=== PATIENT | female | born 1970 | race Caucasian/White ===

== ENCOUNTER → 2016-05-06 | Outpatient (CLI) | payer OTHER ==
[~2016-05-06] MED LIST: NAPR-243 PO
--- OUTSIDE RECORDS SUMMARY | 2016-05-06 11:41 | XMS REPORT | Continuity of Care Document ---
Author Author [facility] Address Unknown Phone Unavailable Allergies Active Description Code Type Severity Reaction Onset Reported/Identified Relationship to Patient Clinical Status Yes calcium [id number] Drug Allergy Unknown N/A 09/23/2007 Yes [place] And Derivatives [id number] Drug Allergy Unknown N/A 09/23/2007 Yes sodium bicarbonate [id number] Drug Allergy Unknown N/A 09/23/2007 Medications Problems Date Dx Coded Attending Type Code Diagnosis Diagnosed By 12/21/2012 JEAN PAUL ATKINSON DO 682.9 CELLULITIS AND ABSCESS OF UNSPECIFIED SITES 12/21/2012 SALOME DELATORRE APRN 682.9 CELLULITIS AND ABSCESS OF UNSPECIFIED SITES 12/21/2012 SALOME DELATORRE APRN 682.9 CELLULITIS AND ABSCESS OF UNSPECIFIED SITES 03/23/2014 QUICK SHAY W [employer] INTER[employer] Ot 793.80 04/03/2014 QUICK, SHAY W [employer] MARK[employer]ING INTERN Ot V76.12 04/05/2014 QUICK, SHAY W [employer] MARK[employer]ING INTERN Ot 793.80 04/15/2014 QUICK, SHAY W [employer] MARKETING INTERN Ot V76.12 04/15/2014 QUICK, SHAY W [employer] MARK[employer]ING INTERN Ot 793.80 04/19/2014 QUICK, SHAY W [employer]ING INTERN Ot V76.12 04/19/2014 QUICK, SHAY W [employer] MARKETING INTERN Ot 793.80 10/11/2014 QUICK, SHAY W [employer] INTERN Ot 793.80 05/03/2015 QUICK SHAY Ricardo [employer] MARKETING INTERN Ot Z12.31 Procedures Code [place] [address] BIOPSY SKIN LESION (SINGLE) 02/28/2013 Results Encounters ACCT No. Visit Date/Time Discharge Status Pt. Type Provider Facility Loc./Unit Complaint [id number] 02/28/2013 12:23:00 02/28/2013 23: 59:59 [facility] Outpatient SALOME DELATORRE APRN [id number] 02/21/2013 16:41:00 02/21/2013 23: 59:59 [facility] Outpatient SALOME DELATORRE APRN [id number] 12/21/2012 11:46:00 12/21/2012 23: 59:[address] [facility] Outpatient JEAN PAUL ATKINSON DO
--- NOTE | 2016-05-08 19:22 | Diagnostic Imaging Report ---
Bilateral screening mammogram. The current study was also evaluated with a Computer Aided Detection (CAD) system. INDICATION: Screening. No current complaints stated on the questionnaire. COMPARISON: 03/30/15. FINDINGS: The breasts are composed of heterogeneously dense parenchyma which may decrease mammographic sensitivity. Benign-appearing calcifications are seen. Allowing for technique and positional differences, no suspicious change is seen. IMPRESSION: Dense breasts with no definite change. ACR BI-RADS Category 2: Benign findings. Result letter will be mailed to the patient. Note: At least 10% of breast cancer is not imaged by mammography. Dictated by: Dictated on workstation # [id number]
== END ==
LOC: RAD 11:38
PROVIDERS: ATTEND Nurse Practitioner
DX: Z12.31 Encounter for screening mammogram for malignant neoplasm of breast (principal)
CPT/HCPCS: 77067

== ENCOUNTER → 2017-06-05 | Outpatient (CLI) | payer OTHER ==
--- NOTE | 2017-06-05 13:55 | Diagnostic Imaging Report ---
Indication: Routine screening. Comparison: Made with prior study from 05/06/2016 and 03/30/2015. Findings: Both breasts are heterogeneously dense, limiting the sensitivity of mammography. No dominant mass or malignant-appearing microcalcifications are seen. A axillae are unremarkable. Impression: BI-RADS category 1 No mammographic features suspicious for malignancy are identified. ACR BI-RADS Category 1: Negative. Result letter will be mailed to the patient. Note: At least 10% of breast cancer is not imaged by mammography. Dictated by: Dictated on workstation # [id number]
== END ==
LOC: RAD 11:22
PROVIDERS: ATTEND Nurse Practitioner
DX: Z12.31 Encounter for screening mammogram for malignant neoplasm of breast (principal)
CPT/HCPCS: 77067

== ENCOUNTER → 2018-07-09 | Outpatient (CLI) | payer OTHER ==
--- NOTE | 2018-07-09 15:56 | Diagnostic Imaging Report ---
INDICATION: Routine screening. COMPARISON: Prior mammograms from 06/05/2017 and 05/06/2016. EXAMINATION: 2D and 3D bilateral screening mammography was performed with CAD. The current study was also evaluated with a Computer Aided Detection (CAD) system. FINDINGS: Both breasts are heterogeneously dense, limiting the sensitivity of mammography. The parenchymal pattern is stable. No mass or malignant appearing microcalcifications are seen. The axillae are unremarkable. IMPRESSION: No mammographic features suspicious for malignancy are identified. ACR BI-RADS Category 1: Negative. Result letter will be mailed to the patient. Note: At least 10% of breast cancer is not imaged by mammography. Dictated by: Dictated on workstation # [id number]
== END ==
LOC: RAD 11:25
PROVIDERS: ATTEND Nurse Practitioner
DX: Z12.31 Encounter for screening mammogram for malignant neoplasm of breast (principal)
CPT/HCPCS: 77067

== ENCOUNTER → 2020-07-30 | Outpatient (CLI) | payer OTHER | LOC: LAB 11:40 | DX: Z53.9 Procedure and treatment not carried out, unspecified reason (principal) ==

== ENCOUNTER → 2020-08-02 | Outpatient (CLI) | payer OTHER ==
--- NOTE | 2020-08-02 16:36 | Diagnostic Imaging Report ---
INDICATION: Screening. EXAMINATION: Bilateral digital screening mammogram with CAD. 3D tomographic images were obtained and reviewed. The current study was also evaluated with a Computer Aided Detection (CAD) system. COMPARISON: This study was compared to the prior exams of 07/09/2018, 06/05/2017 and 04/26/2016. The current study was also evaluated with a Computer Aided Detection (CAD) system. FINDINGS: The fibroglandular tissue in both breasts is heterogeneously dense. This does limit the sensitivity of this exam. Overall, there does not appear to have been any significant change when compared to the prior study. No primary or secondary sign of malignancy is noted. IMPRESSION: There is no radiographic evidence for malignancy. ACR BI-RADS Category 1: Negative. Result letter will be mailed to the patient. Note: At least 10% of breast cancer is not imaged by mammography. Dictated by: Dictated on workstation # [id number]
== END ==
LOC: RAD 11:30
PROVIDERS: ATTEND Nurse Practitioner Family
DX: Z12.31 Encounter for screening mammogram for malignant neoplasm of breast (principal); Z00.01 Encounter for general adult medical examination with abnormal findings; Z76.0 Encounter for issue of repeat prescription; N39.41 Urge incontinence; M17.12 Unilateral primary osteoarthritis, left knee; B35.3 Tinea pedis; B35.1 Tinea unguium
CPT/HCPCS: 77063; 77067

== ENCOUNTER 2021-07-04 08:55 | Emergency (ER) | payer OTHER ==
[~2021-07-04] VITALS: Ht 149.8 cm; Wt 44.5 kg
--- NOTE | 2021-07-04 09:04 | ED Fall/Injury ---
General Stated Complaint: FALL Source: patient, EMS Exam Limitations: no limitations History of Present Illness Date Seen by Provider: July 04, 2021 Time Seen by Provider: 08:56 Initial Comments 50-year-old female with no significant past medical history coming in via EMS from her work after syncopal episode. 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 She is unsure how long she was down. 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 Vitals were normal for them, and her blood glucose was 106. She denied any chest pain, shortness of breath, abdominal pain, nausea, vomiting, diarrhea, fever, chills, weakness, numbness, changes, hearing changes, or any other concerns. She does not take any blood thinners. This is never happened before. Denies any cardiac history. She does take iron for anemia. Has been eating and drinking normally recently. Is postmenopausal. Allergies and Home Medications Allergies Coded Allergies: Calcium (Verified Allergy, Unknown, 09/23/07) [place] And Derivatives (Verified Allergy, Unknown, 09/23/07) Sodium Bicarbonate (Verified Allergy, Unknown, 09/23/07) Patient Home Medication List Home Medication List Reviewed: Yes Naproxen (Naprosyn) 500 Mg Tablet, 1 EACH PO TID PRN Prescribed by: RUBÉN PETERS on 03/30/09 1562 Review of Systems Review of Systems Constitutional: No chills, No fever Eyes: Denies Blurred Vision Ears, Nose, Mouth, Throat: no symptoms reported Respiratory: no symptoms reported Cardiovascular: No chest pain; syncope Gastrointestinal: no symptoms reported Genitourinary: no symptoms reported Musculoskeletal: no symptoms reported Skin: no symptoms reported Psychiatric/Neurological: No Symptoms Reported All Other Systems Reviewed Negative Unless Noted: Yes Past Myadhaw-Qzqfuw-Fqpsaa Hx Past Medical History Reproductive Disorders: No Physical Exam Vital Signs Capillary Refill : Height, Weight, BMI Height: '" Weight: lbs. oz. kg; BMI Method: General Appearance: WD/WN, no apparent distress HEENT: PERRL/EOMI, normal ENT inspection, TMs normal, pharynx normal, other (0.5 centimeter laceration to the upper forehead which is hemostatic) Neck: non-tender, supple, normal inspection, other (C-collar in place so did not range her neck) Cardiovascular: regular rate, rhythm, no edema, no murmur Respiratory: chest non-tender, lungs clear, normal breath sounds, no respiratory distress, no accessory muscle use Gastrointestinal: normal bowel sounds, non tender, soft; No distended, No guarding, No rebound Back: normal inspection, no CVA tenderness, no vertebral tenderness Extremities: normal range of motion, non-tender, normal inspection, no pedal edema, no calf tenderness, normal capillary refill Neurologic/Psychiatric: 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 tested, no motor/sensory deficits, alert, normal mood/affect, oriented x 3 Skin: normal color, warm/dry Lymphatic: no adenopathy Jeannine Coma Score Best Eye Response: (4) Open Spontaneously Best Verbal Response: (5) Oriented Best Motor Response: (6) Obeys Commands Procedures/Interventions Wound Location: Face Other Wound Location forehead Wound Length (cm): 0.5 Wound's Depth, Shape: superficial Wound Explored: clean Irrigated w/ Saline (ccs): 100 Other Closure Supply: Steri Strip 02/26", Wound Adhesive Sterile Dressing Applied?: Yes Progress Wound adhesive and Steri-Strips applied with good apposition of the wound which is hemostatic. She tolerated it well. Progress/Results/Core Measures Results/Orders Lab Results Laboratory Tests Test 07/04/21 09:04 Range/Units White Blood Count 5.8 4.3-11.0 10^3/uL Red Blood Count 3.25 L 3.80-5.11 10^6/uL Hemoglobin 10.1 L 11.5-16.0 g/dL Hematocrit 31 L 35-52 % Mean Corpuscular Volume 94 80-99 fL Mean Corpuscular Hemoglobin 31 25-34 pg Mean Corpuscular Hemoglobin Concent 33 32-36 g/dL Red Cell Distribution Width 13.3 10.0-14.5 % Platelet Count 225 130-400 10^3/uL Mean Platelet Volume 9.3 9.0-12.2 fL Immature Granulocyte % (Auto) 0 % Neutrophils (%) (Auto) 53 42-75 % Lymphocytes (%) (Auto) 36 12-44 % Monocytes (%) (Auto) 8 0-12 % Eosinophils (%) (Auto) 2 0-10 % Basophils (%) (Auto) 1 0-10 % Neutrophils # (Auto) 3.1 1.8-7.8 10^3/uL Lymphocytes # (Auto) 2.1 1.0-4.0 10^3/uL Monocytes # (Auto) 0.5 0.0-1.0 10^3/uL Eosinophils # (Auto) 0.1 0.0-0.3 10^3/uL Basophils # (Auto) 0.1 0.0-0.1 10^3/uL Immature Granulocyte # (Auto) 0.0 0.0-0.1 10^3/uL Sodium Level 142 135-145 MMOL/L Potassium Level 3.6 3.6-5.0 MMOL/L Chloride Level 111 H 98-107 MMOL/L Carbon Dioxide Level 24 21-32 MMOL/L Anion Gap 7 5-14 MMOL/L Blood Urea Nitrogen 25 H 7-18 MG/DL Creatinine 0.67 0.60-1.30 MG/DL Estimat Glomerular Filtration Rate 106 BUN/Creatinine Ratio 37 Glucose Level 98 70-105 MG/DL Calcium Level 8.5 8.5-10.1 MG/DL Corrected Calcium 8.8 8.5-10.1 MG/DL Total Bilirubin 0.3 0.1-1.0 MG/DL Aspartate Amino Transf (AST/SGOT) 16 5-34 U/L Alanine Aminotransferase (ALT/SGPT) 12 0-55 U/L Alkaline Phosphatase 62 40-136 U/L Troponin I < 0.028 <0.028 NG/ML Total Protein 5.7 L 6.4-8.2 GM/DL Albumin 3.6 3.2-4.5 GM/DL My Orders Orders - KIRK VO MD Cbc With Automated Diff (07/04/21 09:01) Comprehensive Metabolic Panel (07/04/21 09:01) Troponin I Garrett (07/04/21 09:01) Chest 1 View, Ap/Pa Only (07/04/21 09:) Ct Head/Cervical Spine Wo (07/04/21 09:) Progress Progress Note : Progress Note 50-year-old female with above history coming in after what sounds like an episode of orthostatic hypotension with syncope followed by hitting her head. ABCs were intact and vitals were stable on presentation. Glucose 106 for EMS. Physical exam reassuring other than the laceration to her forehead which was closed with glue and Steri-Strips after being cleaned. Tetanus is up-to-date per the patient. Basic labs with hemoglobin around 10.1 which is known to her with her anemia. Electrolytes, troponin, creatinine all unremarkable. CT head and cervical spine with no acute findings. Chest x-ray with no acute findings. EKG with no acute ischemic changes she was given a liter of IV fluids from EMS. Believe the patient is stable for discharge with outpatient follow-up as she is at her baseline. She was sent home with strict return precautions Initial ECG Impression Date: July 04, 2021 Initial ECG Impression Time: 09:08 Initial ECG Rate: 64 Initial ECG Rhythm: Normal Sinus Comment Narrow QRS, normal axis, no significant ST changes or T wave abnormalities Diagnostic Imaging Diagonstic Imaging: Xray (chest), CT (head and c spine) Comments [facility] [place] [place] NAME: DONA DUARTE [employer] REC#: [id number] PT STATUS: REG ER : 1970 PHYSICIAN: KIRK VO MD ADMIT DATE: 07/04/21/ER Draft Date of Exam:07/04/21 CT HEAD/CERVICAL SPINE WO PROCEDURE: CT head and CT cervical spine without contrast. TECHNIQUE: Multiple contiguous axial images were obtained through the brain and cervical spine without the use of intravenous contrast. Sagittal and coronal reformations through the cervical spine were then performed. Auto Exposure Controls were utilized during the CT exam to meet ALARA standards for radiation dose reduction. INDICATION: Fall striking the head, resulted in loss of consciousness. COMPARISON: I have no priors. CT HEAD: There is no intracranial hemorrhage, hydrocephalus, edema, mass, mass effect nor evidence for an elevation of the intracerebral pressures. There is no pneumocephalus. There is no calvarial fracture deformity and there is no hemo-sinus. CERVICAL SPINE: The neck is held in flexion. There is no listhesis. There are degenerative changes to the discs, endplates and facets, most severe at the C5-C6 level where the disease results in chronic mild to moderate canal stenosis with moderate left greater than right bony biforaminal stenoses. There was however no cervical fracture or traumatic malalignment. No paravertebral mass, hemorrhage or fluid collection. No traumatic deformity to the structures of the larynx or tracheal cartilage. There is heterogeneity of the thyroid without discrete mass. No cervical adenopathy or hemorrhage. The thoracic inlet and visualized pulmonary apices were nonacute. IMPRESSION: No acute or posttraumatic abnormality identified at CT head/cervical spine. Dictated on workstation # [id number] Dict: 07/04/21 1013 Trans: 07/04/[address] [facility] [id number] Interpreted by: TIARA JUAREZ Electronically signed by: [facility] [place], [place] NAME: DONA DUARTE [employer] REC#: [id number] PT STATUS: REG ER : 1970 PHYSICIAN: KIRK VO MD ADMIT DATE: 07/04/21/ER Draft Date of Exam:07/04/21 CHEST 1 VIEW, AP/PA ONLY Indication: Syncope COMPARISON: None available TECHNIQUE: Single radiograph the chest dated 07/04/2021. FINDINGS: The cardiac silhouette is at the upper limits of normal in size. No significant pulmonary vascular congestion. The lungs are clear of focal pulmonary opacity. No pleural effusion. No pneumothorax. Reverse S-shaped curvature of the visualized cervicothoracic spine. No acute osseous abnormality. IMPRESSION: Reverse S-shaped curvature of the spine without acute osseous abnormality. No acute cardiopulmonary abnormality. Dictated on workstation # [id number] Dict: 07/04/21 1019 Trans: 07/04/21 1025 [facility] [id number] Interpreted by: MILA SCHULTZ MD Electronically signed by: Departure Impression Primary Impression: Syncope Qualified Codes: R55 - Syncope and collapse Additional Impression: Forehead laceration Qualified Codes: S01.81XA - Laceration without foreign body of other part of head, initial encounter Disposition: 01 HOME, SELF-CARE Condition: Stable Departure-Patient Inst. Decision time for Depature: 10:42 Referrals: [facility] [place] Patient Instructions: Fainting, Adult ED, Laceration Repair With Glue ED Add. Discharge Instructions: Follow-up with your regular doctor in the next week to be sure things are improving. If you do not have a regular doctor then you can follow-up with [facility] here, the number is in this paperwork. Do not let the wound on your head get wet further at least 3 days, and afterwards you can let water run over it. If the Steri-Strip is still on in 1 week then you can pull it off. Take ibuprofen and/or Tylenol as needed for pain. We will have a headache likely and you may be more sore tomorrow which is okay. Work/School Note: Work Release Form Date Seen in the Emergency Department: July 04, 2021 Return to Work: July 05, 2021 Restrictions: No Restrictions KIRK VO MD July 04, 2021 09:04
[2021-07-04 09:10] LABS: BASOPHILS # (AUTO) 0.1 10^3/uL (0.0-0.1); BASOPHILS % (AUTO) 1 % (0-10); EOSINOPHILS # (AUTO) 0.1 10^3/uL (0.0-0.3); EOSINOPHILS % (AUTO) 2 % (0-10); HEMATOCRIT 31 % (35-52); HEMOGLOBIN 10.1 g/dL (11.5-16.0); LYMPHOCYTES # (AUTO) 2.1 10^3/uL (1.0-4.0); LYMPHOCYTES % (AUTO) 36 % (12-44); MEAN CORPUSCULAR HEMOGLOBIN 31 pg (25-34); MEAN CORPUSCULAR HGB CONC 33 g/dL (32-36); MEAN CORPUSCULAR VOLUME 94 fL (80-99); MEAN PLATELET VOLUME 9.3 fL (9.0-12.2); MONOCYTES # (AUTO) 0.5 10^3/uL (0.0-1.0); MONOCYTES % (AUTO) 8 % (0-12); NEUTROPHILS # (AUTO) 3.1 10^3/uL (1.8-7.8); NEUTROPHILS % (AUTO) 53 % (42-75); PLATELET COUNT 225 10^3/uL (130-400); WHITE BLOOD COUNT 5.8 10^3/uL (4.3-11.0)
[2021-07-04 09:19] LABS: ALBUMIN 3.6 GM/DL (3.2-4.5)
[2021-07-04 09:20] LABS: CHLORIDE 111 MMOL/L (98-107); POTASSIUM 3.6 MMOL/L (3.6-5.0); SODIUM 142 MMOL/L (135-145)
[2021-07-04 09:21] LABS: CALCIUM 8.5 MG/DL (8.5-10.1)
[2021-07-04 09:22] LABS: GLUCOSE 98 MG/DL (70-105); TOTAL PROTEIN 5.7 GM/DL (6.4-8.2)
[2021-07-04 09:23] LABS: CARBON DIOXIDE 24 MMOL/L (21-32)
[2021-07-04 09:24] LABS: BILIRUBIN,TOTAL 0.3 MG/DL (0.1-1.0)
[2021-07-04 09:25] LABS: ALKALINE PHOSPHATASE 62 U/L (40-136)
[2021-07-04 09:26] LABS: CREATININE SERUM 0.67 MG/DL (0.60-1.30); GFR ESTIMATED 106
[2021-07-04 09:27] LABS: BUN/CREATININE RATIO 37
[2021-07-04 09:29] LABS: ALANINE AMINOTRANSFERASE 12 U/L (0-55)
--- NOTE | 2021-07-04 10:20 | Diagnostic Imaging Report ---
PROCEDURE: CT head and CT cervical spine without contrast. TECHNIQUE: Multiple contiguous axial images were obtained through the brain and cervical spine without the use of intravenous contrast. Sagittal and coronal reformations through the cervical spine were then performed. Auto Exposure Controls were utilized during the CT exam to meet ALARA standards for radiation dose reduction. INDICATION: Fall striking the head, resulted in loss of consciousness. COMPARISON: I have no priors. CT HEAD: There is no intracranial hemorrhage, hydrocephalus, edema, mass, mass effect nor evidence for an elevation of the intracerebral pressures. There is no pneumocephalus. There is no calvarial fracture deformity and there is no hemo-sinus. CERVICAL SPINE: The neck is held in flexion. There is no listhesis. There are degenerative changes to the discs, endplates and facets, most severe at the C5-C6 level where the disease results in chronic mild to moderate canal stenosis with moderate left greater than right bony biforaminal stenoses. There was however no cervical fracture or traumatic malalignment. No paravertebral mass, hemorrhage or fluid collection. No traumatic deformity to the structures of the larynx or tracheal cartilage. There is heterogeneity of the thyroid without discrete mass. No cervical adenopathy or hemorrhage. The thoracic inlet and visualized pulmonary apices were nonacute. IMPRESSION: No acute or posttraumatic abnormality identified at CT head/cervical spine. Dictated by: Dictated on workstation # [id number]
--- NOTE | 2021-07-04 10:26 | Diagnostic Imaging Report ---
Indication: Syncope COMPARISON: None available TECHNIQUE: Single radiograph the chest dated 07/04/2021. FINDINGS: The cardiac silhouette is at the upper limits of normal in size. No significant pulmonary vascular congestion. The lungs are clear of focal pulmonary opacity. No pleural effusion. No pneumothorax. Reverse S-shaped curvature of the visualized cervicothoracic spine. No acute osseous abnormality. IMPRESSION: Reverse S-shaped curvature of the spine without acute osseous abnormality. No acute cardiopulmonary abnormality. Dictated by: Dictated on workstation # [id number]
[2021-07-04 11:00] VITALS: BP 161/93
== END 2021-07-04 11:00 | disposition home or self-care (01) ==
LOC: EDUNIT# 08:55 → ER 08:55
DX: S01.81XA Laceration without foreign body of other part of head, initial encounter (principal); R55 Syncope and collapse; D64.9 Anemia, unspecified; W22.8XXA Striking against or struck by other objects, initial encounter; Y93.E5 Activity, floor mopping and cleaning; Y99.0 Civilian activity done for income or pay
CPT/HCPCS: 36415; 70450; 71045; 72125; 80053; 84484; 85025; 93005

== ENCOUNTER 2022-03-26 05:54 | Outpatient (CLI) | payer OTHER ==
[~2022-03-26] VITALS: Ht 149.9 cm; Wt 43.5 kg
[2022-03-26] MEDS ORDERED: TRM50T PO (11:17)
[2022-03-26] MEDS ORDERED: MULT-593 PO (11:17)
[2022-03-26] MEDS ORDERED: FERR-84 PO (11:17)
== END 2022-03-26 11:19 | disposition home or self-care (01) ==
LOC: PREOP 05:54
PROVIDERS: ATTEND Surgery
DX: Z01.818 Encounter for other preprocedural examination (principal)